=== PATIENT | male | born 1985 | race Asian ===

== ENCOUNTER 2019-08-22 18:31 | Outpatient (CLI) | payer BC | END 2019-08-22 18:32 | disposition home or self-care (01) | LOC: LAB 18:31 | PROVIDERS: ATTEND Obstetrics & Gynecology Reproductive Endocrinology | DX: Z31.441 Encounter for testing of male partner of patient with recurrent pregnancy loss (principal) | CPT/HCPCS: 81599; 88230; 88262 ==

== ENCOUNTER 2019-10-18 12:55 | Outpatient (CLI) | payer BC | END 2019-10-18 12:56 | disposition home or self-care (01) | LOC: COV 12:55 | PROVIDERS: ATTEND Family Medicine | DX: R50.9 Fever, unspecified (principal); R05 Cough; M79.10 Myalgia, unspecified site; R53.83 Other fatigue; J02.9 Acute pharyngitis, unspecified; Z20.828 Contact with and (suspected) exposure to other viral communicable diseases ==